=== PATIENT | male | born 1950 | race Caucasian/White ===

== ENCOUNTER 2022-07-13 16:15 | Emergency (ER) | payer OTHER, BC ==
[2022-07-13 16:33] VITALS: BP 137/69; PULSE 89; RESP 20; TEMP 98.6; BMI 34.8
[2022-07-13] MEDS ORDERED: BACITRACIN 0.9 GM PACKET ONE (16:52)
== END 2022-07-13 17:02 | disposition home or self-care (01) ==
LOC: JERFT 16:15
DX: S80.212A Abrasion, left knee, initial encounter (principal); W01.0XXA Fall on same level from slipping, tripping and stumbling without subsequent striking against object, initial encounter
CPT/HCPCS: 99282-25